=== PATIENT | male | born 1990 | race Caucasian/White ===

== ENCOUNTER 2023-03-08 07:59 | Emergency (ER) | payer MEDICAID ==
[~2023-03-08] VITALS: Ht 182.9 cm; Wt 118.2 kg
[2023-03-08 08:19] VITALS: BP 136/94
[2023-03-08] MEDS ORDERED: naproxen 500mg tablet PO ONE (09:10)
[2023-03-08] MEDS ORDERED: NAPR-56 PO (09:13)
[2023-03-08] MEDS ORDERED: CYCL-1 PO (09:13)
== END 2023-03-08 09:53 | disposition home or self-care (01) ==
LOC: ER 07:59
DX: M54.42 Lumbago with sciatica, left side (principal); F17.200 Nicotine dependence, unspecified, uncomplicated; Z72.89 Other problems related to lifestyle; Z98.890 Other specified postprocedural states; Z79.899 Other long term (current) drug therapy
CPT/HCPCS: 72100; 99283

== ENCOUNTER 2023-06-14 13:26 | Emergency (ER) | payer MEDICAID ==
[~2023-06-14] VITALS: Ht 182.9 cm; Wt 115.0 kg
[~2023-06-14 13:26] MED LIST: CYCL-1 PO
[2023-06-14 13:32] VITALS: TEMP 97.9
[2023-06-14 13:56] LABS: BASOPHILS # (AUTO) 0.1 X10'3 (0-0.2); BASOPHILS % (AUTO) 0.8 % (0-1); EOSINOPHILS # (AUTO) 0.1 X10'3 (0-0.9); EOSINOPHILS % (AUTO) 1.5 % (0-6); HEMATOCRIT 48.5 % (42.0-52.0); HEMOGLOBIN 16.4 g/dl (14.0-17.9); LYMPHOCYTES # (AUTO) 2.4 X10'3 (1.1-4.8); LYMPHOCYTES % (AUTO) 31.5 % (21-51); MEAN CORPUSCULAR HEMOGLOBIN 32.4 PG (27.0-31.0); MEAN CORPUSCULAR HGB CONC 33.9 g/dL (33.0-36.5); MEAN CORPUSCULAR VOLUME 95.5 FL (78-98); MEAN PLATELET VOLUME 10.5 FL (7.4-10.4); MONOCYTES # (AUTO) 0.5 X10'3 (0-0.9); MONOCYTES % (AUTO) 7.3 % (2-12); NEUTROPHILS # (AUTO) 4.4 X10'3 (1.8-7.7); NEUTROPHILS % (AUTO) 58.9 % (42-75); PLATELET COUNT 212 X10'3 (140-440); RED BLOOD COUNT 5.07 X10'6 (4.70-6.10); RED CELL DISTRIBUTION WIDTH 13.5 % (11.5-14.5); WHITE BLOOD COUNT 7.5 X10'3 (4.5-11.0)
[2023-06-14 14:08] LABS: ALANINE AMINOTRANSFERASE 45 U/L (12-78); ALBUMIN 4.4 G/DL (3.4-5.0); ALBUMIN/GLOBULIN RATIO 1.3 (1.1-1.5); ALKALINE PHOSPHATASE 70 IU/L (46-116); ANION GAP 11 (8-16); ASPARTATE AMINO TRANSFERASE 27 U/L (10-37); BILIRUBIN,TOTAL 0.9 MG/DL (0.1-1.0); BLOOD UREA NITROGEN 11 MG/DL (7-18); BUN/CREATININE RATIO 10.6 (10.0-20.0); CALCIUM 9.4 MG/DL (8.5-10.1); CHLORIDE 104 MMOL/L (99-107); CREATININE 1.04 MG/DL (0.60-1.10); GLUCOSE 104 MG/DL (70-104); POTASSIUM 3.8 MMOL/L (3.5-5.1); SODIUM 144 MMOL/L (135-145); TOTAL CARBON DIOXIDE 28.7 MMOL/L (24-32); TOTAL PROTEIN 7.8 G/DL (6.4-8.2); eGFR 82 ML/MIN
[2023-06-14] MEDS ORDERED: normal saline 1000ml 1,000 ML IV ONE (14:40)
[2023-06-14] MEDS ORDERED: propofol 10mg/ml 20ml vial IV ONE (14:50)
--- NOTE | 2023-06-14 15:22 | NUR ---
MODERATE SEDATION FOR SYNCHRONIZED CARDIOVERSION BY DR CURTIS, ANTHONY DISC JOCKEY, SHIRA RN, KRISHNA RT. 1512 60MG PROPOFOL PADS ON AND CHARGED UP TO 150 JOULES 1515 40MG PROPOFOL 1518 100MG PROPOFOL 1519 SHOCK ADMINISTERED NSR HR OF 92 1523 CONFIRMED NSR HR 89 BLOOD PRESSURE WNL THROUGHOUT AND AFTER PROCEDURE
[2023-06-14 16:20] VITALS: BP 109/82; PULSE 85; RESP 17; O2SAT 100
== END 2023-06-14 16:21 | disposition home or self-care (01) ==
LOC: ER 13:27
DX: I48.20 Chronic atrial fibrillation, unspecified (principal); F12.90 Cannabis use, unspecified, uncomplicated; Z79.899 Other long term (current) drug therapy
CPT/HCPCS: 36415; 71045; 80053; 83880; 84484; 85025; 92960; 93005; 99152; 99285; J7030; 94760; A4620